=== PATIENT | male | born 1975 ===

== ENCOUNTER 2023-10-17 21:04 | Emergency (ER) | payer MEDICAID ==
[~2023-10-17] VITALS: Ht 167.6 cm; Wt 111.1 kg
[2023-10-17 21:09] VITALS: BP 137/89; PULSE 75; RESP 18; TEMP 98.2; O2SAT 97
== END 2023-10-18 00:47 | disposition left against medical advice (07) ==
LOC: ER 21:05
DX: M54.2 Cervicalgia (principal); Z53.21 Procedure and treatment not carried out due to patient leaving prior to being seen by health care provider
CPT/HCPCS: 99281; L0172